=== PATIENT | male | born 1990 | race Caucasian/White ===

== ENCOUNTER 2024-08-01 08:53 | Emergency (ER) | payer OTHER ==
[~2024-08-01] VITALS: Ht 180.3 cm; Wt 90.7 kg
[2024-08-01 09:14] VITALS: BP 151/90; TEMP 97.8
[2024-08-01] MEDS ORDERED: METH-647 PO (09:26)
[2024-08-01] MEDS ORDERED: IBUP-1490 PO (09:26)
[2024-08-01 10:59] VITALS: O2SAT 99
== END 2024-08-01 10:50 | disposition home or self-care (01) ==
LOC: ER 09:02
DX: M62.838 Other muscle spasm (principal); M54.2 Cervicalgia; M79.602 Pain in left arm